=== PATIENT | female | born 1960 | race African-American/Black ===

== ENCOUNTER 2016-10-25 16:15 | Emergency (ER) | payer SELFPAY ==
[~2016-10-25] VITALS: Ht 170.2 cm; Wt 92.0 kg
[~2016-10-25 16:15] MED LIST: NO HOME MED
[2016-10-25 16:43] VITALS: BP 149/80
[2016-10-25] MEDS ORDERED: IBUPROFEN 600MG TABLET PO ONE (17:45)
== END 2016-10-25 18:14 | disposition home or self-care (01) ==
LOC: ER 16:43
DX: M25.461 Effusion, right knee (principal); I10 Essential (primary) hypertension; E11.9 Type 2 diabetes mellitus without complications; F17.210 Nicotine dependence, cigarettes, uncomplicated; M19.90 Unspecified osteoarthritis, unspecified site; Z88.6 Allergy status to analgesic agent; Z90.710 Acquired absence of both cervix and uterus
CPT/HCPCS: 99281

== ENCOUNTER 2017-02-15 00:17 | Emergency (ER) | payer OTHER ==
[~2017-02-15] VITALS: Ht 170.2 cm; Wt 91.0 kg
[2017-02-15 01:13] VITALS: BP 143/78
== END 2017-02-15 00:30 | disposition left against medical advice (07) ==
LOC: ER 00:17
DX: M54.2 Cervicalgia (principal); Z53.21 Procedure and treatment not carried out due to patient leaving prior to being seen by health care provider

== ENCOUNTER 2017-09-13 21:30 | Emergency (ER) | payer OTHER ==
[~2017-09-13] VITALS: Ht 170.2 cm; Wt 92.0 kg
[2017-09-13 21:40] VITALS: BP 133/76
[2017-09-13] MEDS ORDERED: SODIUM CHLORIDE 0.9% 1,000 ML IV ONE (22:59)
[2017-09-13] MEDS ORDERED: DICYCLOMINE 10 MG/5 ML ORAL SYR PO ONE (23:00)
[2017-09-13] MEDS ORDERED: MAGNESIUM/ALUMINUM HYDROXIDE/SIMETHICONE 30ML UDC PO ONE (23:00)
[2017-09-13] MEDS ORDERED: VISCOUS LIDOCAINE 2% 15 ML UDC PO ONE (23:00)
[2017-09-13] MEDS ORDERED: ASPIRIN 81MG TABLET PO ONE (23:00)
[2017-09-13] MEDS ORDERED: NITROGLYCERIN OINT 1GM/INCH UDPKT TD ONE (23:00)
== END 2017-09-13 21:50 | disposition left against medical advice (07) ==
LOC: ER 21:30
DX: R07.89 Other chest pain (principal); I10 Essential (primary) hypertension; E78.00 Pure hypercholesterolemia, unspecified; E11.9 Type 2 diabetes mellitus without complications; F17.200 Nicotine dependence, unspecified, uncomplicated; Z96.651 Presence of right artificial knee joint; Z88.5 Allergy status to narcotic agent
CPT/HCPCS: 93005; 99283; J7030

== ENCOUNTER 2018-08-08 16:32 | Emergency (ER) | payer OTHER ==
[~2018-08-08] VITALS: Ht 162.6 cm; Wt 93.0 kg
[2018-08-08] MEDS ORDERED: SODIUM CHLORIDE 0.9% 1,000 ML IV ONE (20:00)
[2018-08-08] MEDS ORDERED: HYDROCODONE/ACETAMINOPHEN 5/325MG TABLET PO ONE (20:00)
[2018-08-08 20:22] LABS: HEMATOCRIT 45.3 % (36.0-48.0); HEMOGLOBIN 15.4 g/dL (12.0-16.0); MEAN CORPUSCULAR HEMOGLOBIN 31.5 pg (28.0-32.0); PLATELET 294 x1000/uL (130-400); RED BLOOD CELL COUNT 4.88 mill/uL (4.2-5.4); RED CELL DISTRIBUTION WIDTH 15.7 % (11.6-14.6)
[2018-08-08 20:26] LABS: CHLORIDE 108 mEq/L (98-107)
[2018-08-08 23:06] VITALS: BP 155/78
== END 2018-08-08 23:11 | disposition home or self-care (01) ==
LOC: ER 16:32
DX: J06.9 Acute upper respiratory infection, unspecified (principal); E11.9 Type 2 diabetes mellitus without complications; I10 Essential (primary) hypertension; E78.00 Pure hypercholesterolemia, unspecified; F17.210 Nicotine dependence, cigarettes, uncomplicated; Z88.5 Allergy status to narcotic agent; Z96.659 Presence of unspecified artificial knee joint
CPT/HCPCS: 36415; 71045; 80048; 83880; 84484; 85027; 99284; J7030

== ENCOUNTER 2019-07-23 16:37 | Emergency (ER) | payer OTHER ==
[~2019-07-23] VITALS: Ht 170.2 cm; Wt 91.0 kg
[2019-07-23] MEDS ORDERED: SODIUM CHLORIDE 0.9% 1,000 ML IV ONE (17:04)
[2019-07-23] MEDS ORDERED: ASPIRIN 81MG TABLET PO ONE (17:15)
[2019-07-23] MEDS ORDERED: ADENOSINE 3 MG/ML 2ML VIAL IV ONE ×2 (17:30→19:00)
[2019-07-23 17:43] LABS: BASOPHILS % 0.8 % (0.0-2.0); EOSINOPHILS % 0.4 % (0.0-5.0); HEMATOCRIT. 46.9 % (36.0-48.0); HEMOGLOBIN. 15.5 g/dL (12.0-16.0); LYMPHOCYTES % 42.3 % (20.0-50.0); MEAN CORPUSCULAR HEMOGLOBIN 31.8 pg (28.0-32.0); MEAN CORPUSCULAR VOLUME 96.1 fL (81.0-99.0); MEAN PLATELET VOLUME 9.8 fl (7.4-10.4); MONOCYTES % 5.7 % (2.0-8.0); NEUTROPHILS % 50.8 % (40.0-76.0); PLATELET 239 x1000/uL (130-400); RED BLOOD CELL COUNT 4.88 mill/uL (4.2-5.4)
[2019-07-23 17:46] LABS: CHLORIDE 111 mEq/L (98-107)
[2019-07-23 17:51] LABS: D-DIMER 0.2 mg/L FEU (<0.50); INR 0.9; PARTIAL THROMBOPLASTIN TIME 25.5 sec (23.4-31.0); PROTHROMBIN TIME 10.1 sec (9.6-11.0)
[2019-07-23 19:55] VITALS: BP 106/73
== END 2019-07-23 20:50 | disposition left against medical advice (07) ==
LOC: ER 16:37 → CANBEDREQ 07-24 00:22
DX: R06.02 Shortness of breath (principal); R00.2 Palpitations; I47.1 Supraventricular tachycardia; E11.9 Type 2 diabetes mellitus without complications; E78.00 Pure hypercholesterolemia, unspecified; I10 Essential (primary) hypertension; Z96.659 Presence of unspecified artificial knee joint; Z88.5 Allergy status to narcotic agent
CPT/HCPCS: 36415; 71045; 80053; 82962; 83880; 84443; 84484; 85025; 85379; 85610; 85730; 92960; 93005; 96360; 99285; J0153; J7030

== ENCOUNTER 2019-07-27 05:05 | Emergency (ER) | payer OTHER ==
[~2019-07-27] VITALS: Ht 170.2 cm; Wt 91.0 kg
[2019-07-27 07:15] LABS: CHLORIDE 107 mEq/L (98-107)
[2019-07-27 07:22] LABS: BASOPHILS % 0.5 % (0.0-2.0); EOSINOPHILS % 1.1 % (0.0-5.0); HEMATOCRIT. 46.6 % (36.0-48.0); HEMOGLOBIN. 15.7 g/dL (12.0-16.0); LYMPHOCYTES % 51.4 % (20.0-50.0); MEAN CORPUSCULAR VOLUME 94.9 fL (81.0-99.0); MEAN PLATELET VOLUME 9.6 fl (7.4-10.4); PLATELET 244 x1000/uL (130-400); RED BLOOD CELL COUNT 4.91 mill/uL (4.2-5.4); RED CELL DISTRIBUTION WIDTH 15.5 % (11.6-14.6)
[2019-07-27 07:25] LABS: T4 FREE 1.11 ng/dL (0.76-1.46)
[2019-07-27 08:47] VITALS: BP 142/68
== END 2019-07-27 08:48 | disposition home or self-care (01) ==
LOC: ER 05:05
DX: R42 Dizziness and giddiness (principal); R00.2 Palpitations; E11.9 Type 2 diabetes mellitus without complications; E78.00 Pure hypercholesterolemia, unspecified; I10 Essential (primary) hypertension; Z96.659 Presence of unspecified artificial knee joint; Z88.5 Allergy status to narcotic agent
CPT/HCPCS: 36415; 71045; 80053; 82962; 83735; 83880; 84439; 84443; 84484; 85025; 93005; 99285

== ENCOUNTER 2021-09-09 17:16 | Emergency (ER) | payer OTHER ==
[~2021-09-09] VITALS: Ht 165.1 cm; Wt 100.0 kg
[2021-09-09 17:20] VITALS: BP 150/86
== END 2021-09-09 18:24 | disposition left against medical advice (07) ==
LOC: ER 17:16
DX: I10 Essential (primary) hypertension (principal); I49.9 Cardiac arrhythmia, unspecified; Z53.21 Procedure and treatment not carried out due to patient leaving prior to being seen by health care provider
CPT/HCPCS: 82962; 93005

== ENCOUNTER 2023-02-01 17:01 | Emergency (ER) | payer OTHER ==
[~2023-02-01] VITALS: Ht 167.6 cm; Wt 100.0 kg
[2023-02-01 17:13] VITALS: BP 140/80; PULSE 83; RESP 18; TEMP 98.1; O2SAT 97
[2023-02-01] MEDS ORDERED: AZIT500T2 MT (21:52)
== END 2023-02-01 22:50 | disposition home or self-care (01) ==
LOC: ER 17:01
DX: R05.9 Cough, unspecified (principal); E11.9 Type 2 diabetes mellitus without complications; E78.00 Pure hypercholesterolemia, unspecified; I10 Essential (primary) hypertension; Z90.710 Acquired absence of both cervix and uterus
CPT/HCPCS: 99281; 99283

== ENCOUNTER 2025-02-04 08:40 | Emergency (ER) | payer OTHER ==
[~2025-02-04] VITALS: Ht 162.6 cm; Wt 91.0 kg
[~2025-02-04 08:40] MED LIST changes: +AZIT500T2 MT
[2025-02-04 08:48] VITALS: O2SAT 98
[2025-02-04] MEDS: KETOROLAC 30MG/ML VIAL IM ONE (11:00)
[2025-02-04] MEDS ORDERED: IBUP-1455 MT (11:00)
[2025-02-04 11:32] VITALS: BP 159/64; PULSE 62; RESP 16; TEMP 36.7; O2SAT 98
== END 2025-02-04 11:33 | disposition home or self-care (01) ==
LOC: ER 09:12
DX: M25.472 Effusion, left ankle (principal); M25.572 Pain in left ankle and joints of left foot; E11.9 Type 2 diabetes mellitus without complications; E78.00 Pure hypercholesterolemia, unspecified; I10 Essential (primary) hypertension; M19.90 Unspecified osteoarthritis, unspecified site; Z96.659 Presence of unspecified artificial knee joint; Z90.710 Acquired absence of both cervix and uterus; Z79.899 Other long term (current) drug therapy; Z88.5 Allergy status to narcotic agent; W18.30XA Fall on same level, unspecified, initial encounter; Y93.89 Activity, other specified; Y92.89 Other specified places as the place of occurrence of the external cause; Y99.8 Other external cause status
CPT/HCPCS: 99283; 29515; 73600; 96372; J1885; A6449